=== PATIENT | female | born 2000 | race Caucasian/White ===

== ENCOUNTER 2023-12-17 13:04 | Emergency (ER) | payer OTHER ==
[~2023-12-17] VITALS: Ht 162.6 cm; Wt 113.4 kg
[2023-12-17 13:29] VITALS: BP_SYST 133; PULSE 103; RESP 20; TEMP 97.6; O2SAT 99
[2023-12-17] MEDS ORDERED: AMOX500C2 PO (14:17)
[2023-12-17] MEDS ORDERED: BENZ1LOZ73 PO (14:17)
[2023-12-17 15:38] VITALS: BP_SYST 133; PULSE 103; RESP 20; TEMP 97.6; O2SAT 99
== END 2023-12-17 14:30 | disposition home or self-care (01) ==
LOC: SED 13:04
DX: K12.2 Cellulitis and abscess of mouth (principal); R09.89 Other specified symptoms and signs involving the circulatory and respiratory systems
CPT/HCPCS: 99283